=== PATIENT | female | born 1970 | race Caucasian/White ===

== ENCOUNTER 2019-05-03 13:19 | Emergency (ER) | payer SELFPAY ==
[~2019-05-03] VITALS: Ht 157.5 cm; Wt 102.1 kg
[2019-05-03 13:26] VITALS: BP 122/80; Ht 157.5 cm; Wt 102.1 kg
== END 2019-05-03 13:57 | disposition home or self-care (01) ==
LOC: ED 13:19
DX: L03.811 Cellulitis of head [any part, except face] (principal); E11.9 Type 2 diabetes mellitus without complications

== ENCOUNTER 2019-10-25 08:59 | Emergency (ER) | payer OTHER ==
[~2019-10-25] VITALS: Ht 66 cm; Wt 99.8 kg
[2019-10-25 09:14] VITALS: Ht 66 cm; Wt 99.8 kg
[2019-10-25 12:20] VITALS: BP 125/75
== END 2019-10-25 12:20 | disposition home or self-care (01) ==
LOC: ED 08:59
DX: S70.01XA Contusion of right hip, initial encounter (principal); E11.9 Type 2 diabetes mellitus without complications; Z98.890 Other specified postprocedural states; W18.09XA Striking against other object with subsequent fall, initial encounter; Y93.89 Activity, other specified; Y92.89 Other specified places as the place of occurrence of the external cause; Y99.8 Other external cause status
CPT/HCPCS: J1885